=== PATIENT | female | born 1950 | race Caucasian/White ===

== ENCOUNTER 2017-01-24 11:03 | Observation (INO) | payer MEDICARE, OTHER ==
[2017-01-24 12:01] LABS: Lactic Acid 1.2 (0.4-2.0); VBG BASE EXCESS 0.7 (-2.0-2.0); VBG CARBOXYHEMOGLOBIN 3.2 % T HGB (0.0-6.9); VBG HCO3- 25.4 meq/L (22-28); VBG HEMOGLOBIN 8.5; VBG O2 SATURATION 92.6 (95-100); VBG POTASSIUM 4.6 (3.5-5.1); VBG pH 7.41 (7.32-7.42)
[2017-01-24 12:01] LABS: COMPLETE URINE MICROSCOPIC? NO; Collection Type CLEAN CATCH
[2017-01-24 12:04] LABS: Mean Cell Volume 94.8 fl (78-100); Mean Corpuscular Hemoglobin 28.7 pg (26-32); Mean Platelet Volume 10.8 fl (6-9.5); Platelet Count 231 K/mm3 (150-450); Red Blood Count 2.89 M/mm3 (4.1-5.4); Red Cell Distribution Width 13.6 % (11.5-14.0); White Blood Count 12.3 K/mm3 (4.0-10.5)
--- NOTE | 2017-01-24 12:15 | ERPHSYRPT ---
- History of Present Illness Time Seen by Provider: 01/24/17 11:31 Source: patient, family (friend) Patient Subjective Stated Complaint: pt states she has been sob for the past few months and has become worse over the last few weeks . pt states she couldn' t wait to see her DrJonathan tomorrow. pt states she has a history of Chf. denies any cough. c/o bilateral leg edema. sob worse with exertion. Triage Nursing Assessment: pt pink, warm, dry. bilateral 2 plus pitting edema. lung sounds clear and equal. Physician History: CC: 66 y/o patient of FLYNN Templeton. She came to ER with gradually increasing BELTRAN and shortness of breath. Some fatigue. No chest pain. Some edema and swelling. No blood in stools. Normal urination. No fever or chills. This has worsened over a few months. She does not go to doctor often. She has some hx of heart disease and saw Dr Powers in the past. No hx of kidney disease. Severity of Dyspnea-Max: severe Severity of Dyspnea-Current: moderate Allergies/Adverse Reactions: No Known Drug Allergies Allergy (Unverified 01/24/17 11:42) Home Medications: Lisinopril 40 mg PO DAILY 04/09/15 [History] Ranitidine HCl [Zantac] 300 mg PO DAILY 04/09/15 [History] Atorvastatin Calcium [Lipitor 20MG Tablet] 20 mg PO DAILY 01/24/17 [History] Cholestyramine/Aspartame [Prevalite Powder] 231 gm PO DAILY 01/24/17 [History] Cyanocobalamin 1000 Mcg/ml [Cyanocobalamin B-12 1000 MCG/ML] 1,000 mcg IJ UD 01/24/17 [History] Diltiazem HCl [Cartia Xt] 240 mg PO DAILY 01/24/17 [History] Fluticasone/Vilanterol [Breo Ellipta 100-25 Mcg INH] 1 each IH DAILY 01/24/17 [ History] Insulin Glargine,Hum.rec.anlog [Lantus Solostar] 74 unit SQ HS 01/24/17 [History ] Meloxicam 15 mg [Meloxicam 15 MG] 15 mg PO DAILY 01/24/17 [History] Hx Tetanus, Diphtheria Vaccination/Date Given: Yes (unknown) Hx Influenza Vaccination/Date Given: Yes Hx Pneumococcal Vaccination/Date Given: Yes Immunizations Up to Date: Yes - Review of Systems Constitutional: Fatigue, Malaise, Weakness, No Fever, No Chills Eyes: No Symptoms Ears, Nose, & Throat: No Symptoms Respiratory: Dyspnea, Dyspnea on Exertion (BELTRAN), No Cough Cardiac: No Chest Pain Abdominal/Gastrointestinal: No Abdominal Pain, No Nausea, No Vomiting, No Diarrhea Genitourinary Symptoms: No Dysuria Musculoskeletal: No Back Pain Skin: No Rash Neurological: No Headache All Other Systems: Reviewed and Negative - Past Medical History Pertinent Past Medical History: Yes Neurological History: No Pertinent History ENT History: Cataracts Cardiac History: Congestive Heart Failure, Hypertension Respiratory History: No Pertinent History Endocrine Medical History: Diabetes Type II Musculoskeletal History: Arthritis GI Medical History: No Pertinent History History: No Pertinent History Psycho-Social History: No Pertinent History Female Reproductive Disorders: No Pertinent History Other Medical History: anemia and colonic AVM - Past Surgical History Past Surgical History: No Neuro Surgical History: No Pertinent History Cardiac: No Pertinent History Respiratory: No Pertinent History Gastrointestinal: No Pertinent History Genitourinary: No Pertinent History Musculoskeletal: No Pertinent History Female Surgical History: No Pertinent History Other Surgical History: cataracts - Social History Smoking Status: Never smoker Exposure to second hand smoke: No Drug Use: none Patient Lives Alone: No - Nursing Vital Signs Nursing Vital Signs: Initial Vital Signs Temperature 97.4 F Temperature Source Oral Pulse Rate 100 Respiratory Rate 18 Blood Pressure [Right Arm] 154/52 Pain Intensity 0 - Physical Exam General Appearance: alert Eye Exam: PERRL/EOMI Neck Exam: normal inspection, non-tender, supple Respiratory Exam: normal breath sounds, lungs clear, No respiratory distress Cardiovascular/Chest Exam: regular rate/rhythm, murmur (soft) Abdominal/Gastrointestinal Exam: soft, No tenderness, No distention, No mass, No guarding Extremity Exam: non-tender, normal range of motion Neurologic Exam: alert, oriented x 3, cooperative, sensation nml, No motor deficits Skin Exam: warm, dry, No rash SpO2 Interpretation: normal SpO2: 96 Oxygen Delivery: Room Air - Course Nursing assessment & vital signs reviewed: Yes EKG Interpreted by Me: RATE (100), Sinus Rhythm, NORMAL AXIS, LAFB, NORMAL INTERVALS (QTc 439), NORMAL QRS, Non-specific ST Changes - Radiology Exams cxr X-ray Interpretation: Teleradiologist Report, Negative Ordered Tests: Active Orders 24 hr Category Date Time Status Elevator Constructor STAT Care 01/24/17 11:42 Active Clean Catch Urine Specimen STAT Care 01/24/17 12:06 Active EKG-ER Only STAT Care 01/24/17 11:42 Active IV Insertion STAT Care 01/24/17 11:42 Active Pulse Oximetry (ED) STAT Care 01/24/17 11:42 Active CHEST 1 VIEW (PORTABLE) Stat Exams 01/24/17 11:48 Completed CBC W DIFF Stat Lab 01/24/17 11:56 Completed CMP Stat Lab 01/24/17 11:56 Completed Lactic Acid Urgent Lab 01/24/17 11:48 Completed Manual Differential NC Stat Lab 01/24/17 11:56 Completed NT PRO BNP Stat Lab 01/24/17 11:56 Completed Occult Blood,Stool Other Stat Lab 01/24/17 12:20 Completed TROPONIN Stat Lab 01/24/17 11:56 Completed UA Stat Lab 01/24/17 11:56 Completed VENOUS BLOOD GAS Urgent Lab 01/24/17 11:48 Completed Lab/Rad Data: Laboratory Result Diagrams 01/24/17 11:56 01/24/17 11:56 Laboratory Results 01/24/17 01/24/17 01/24/17 Range/Units 12:20 11:56 11:56 WBC 12.3 H (4.0-10.5) K/mm3 RBC 2.89 L (4.1-5.4) M/mm3 Hgb 8.3 L (12.0-16.0) gm/dl Hct 27.4 L (35-47) % MCV 94.8 (78-100) fl MCH 28.7 (26-32) pg MCHC 30.3 L (32-36) g/dl RDW 13.6 (11.5-14.0) % Plt Count 231 (150-450) K/mm3 MPV 10.8 H (6-9.5) fl VBG pH (7.32-7.42) VBG pCO2 at Pat Temp (42-55) mm/Hg VBG pO2 at Pat Temp (25-40) mm/Hg VBG HCO3 (22-28) meq/L VBG O2 Sat (Victor Manuel) (95-100) VBG Base Excess (-2.0-2.0) VBG Hemoglobin VBG Carboxyhemoglobin (0.0-6.9) % T HGB POC Potassium (3.5-5.1) Sodium 140 (136-145) mEq/L Potassium 4.6 (3.5-5.1) mEq/L Chloride 104 (98-107) mEq/L Carbon Dioxide 23.3 (21-32) mEq/L Anion Gap 16.8 H (5-15) MEQ/L BUN 33 H (9-20) mg/dL Creatinine 1.48 H (0.55-1.30) mg/dl Estimated GFR 38 ML/MIN Glucose 158 H (70-110) MG/DL Lactic Acid (0.4-2.0) Calcium 9.1 (8.5-10.1) mg/dL Total Bilirubin 0.2 (0.2-1.0) mg/dL AST 18 (15-37) U/L ALT 13 (12-78) U/L Alkaline Phosphatase 120 H (46-116) U/L Troponin I < 0.017 (0.000-0.056) ng/ml NT-Pro-B Natriuret Pep 139 H (0-125) pg/ml Serum Total Protein 6.8 (6.4-8.2) gm/dL Albumin 3.0 L (3.4-5.0) g/dL Ur Collection Type Urine Color (YELLOW) Urine Appearance (CLEAR) Urine pH (5-6) Ur Specific [place] (1.005-1.025) Urine Protein (Negative) Urine Glucose (UA) (NEGATIVE) mg/dL Urine Ketones (NEGATIVE) Urine Nitrite (NEGATIVE) Urine Bilirubin (NEGATIVE) Urine Urobilinogen (0-1) mg/dL Urine WBC (Auto) (NEGATIVE) Urine RBC (Auto) (0-5) Akash/ul Stool Occult Blood POSITIVE (Negative) Specimen Received 01/24/17 01/24/17 Range/Units 11:56 11:48 WBC (4.0-10.5) K/mm3 RBC (4.1-5.4) M/mm3 Hgb (12.0-16.0) gm/dl Hct (35-47) % MCV (78-100) fl MCH (26-32) pg MCHC (32-36) g/dl RDW (11.5-14.0) % Plt Count (150-450) K/mm3 MPV (6-9.5) fl VBG pH 7.41 (7.32-7.42) VBG pCO2 at Pat Temp 40 L (42-55) mm/Hg VBG pO2 at Pat Temp 59 H (25-40) mm/Hg VBG HCO3 25.4 (22-28) meq/L VBG O2 Sat (Victor Manuel) 92.6 L (95-100) VBG Base Excess 0.7 (-2.0-2.0) VBG Hemoglobin 8.5 VBG Carboxyhemoglobin 3.2 (0.0-6.9) % T HGB POC Potassium 4.6 (3.5-5.1) Sodium (136-145) mEq/L Potassium (3.5-5.1) mEq/L Chloride (98-107) mEq/L Carbon Dioxide (21-32) mEq/L Anion Gap (5-15) MEQ/L BUN (9-20) mg/dL Creatinine (0.55-1.30) mg/dl Estimated GFR ML/MIN Glucose (70-110) MG/DL Lactic Acid 1.2 (0.4-2.0) Calcium (8.5-10.1) mg/dL Total Bilirubin (0.2-1.0) mg/dL AST (15-37) U/L ALT (12-78) U/L Alkaline Phosphatase (46-116) U/L Troponin I (0.000-0.056) ng/ml NT-Pro-B Natriuret Pep (0-125) pg/ml Serum Total Protein (6.4-8.2) gm/dL Albumin (3.4-5.0) g/dL Ur Collection Type CLEAN CATCH Urine Color YELLOW (YELLOW) Urine Appearance CLEAR (CLEAR) Urine pH 5.0 (5-6) Ur Specific [place] 1.010 (1.005-1.025) Urine Protein NEGATIVE (Negative) Urine Glucose (UA) NEGATIVE (NEGATIVE) mg/dL Urine Ketones NEGATIVE (NEGATIVE) Urine Nitrite NEGATIVE (NEGATIVE) Urine Bilirubin NEGATIVE (NEGATIVE) Urine Urobilinogen 0.2 (0-1) mg/dL Urine WBC (Auto) NEGATIVE (NEGATIVE) Urine RBC (Auto) NEGATIVE (0-5) Akash/ul Stool Occult Blood (Negative) Specimen Received 5/9/17 1150 - Progress Progress Note: 01/24/17 13:39 She is stable. No chest pain. Somewhat breathless with exertion. VTE not suspected. She has anemia. Heme positive stools. No sign of CHF. She and family feel needs observation. Called Dr Oliveros and will get repeat H/H, echo. Discussed with .: Domo Will see patient in: hospital (observation) Counseled pt/family regarding: lab results, diagnosis, need for follow-up, rad results - Departure Time of Disposition: 13:40 Departure Disposition: Observation Clinical Impression: Dyspnea on exertion, Anemia, Heme positive stool Condition: Fair Critical Care Time: No
--- NOTE | 2017-01-24 12:28 | XRAY ---
Indication: Short of breath. Comparison: June 24, 2015. Portable chest remains clear. Heart is not enlarged for AP portable technique. Bony thorax intact again with mild degenerative changes. Impression: Stable nonacute chest.
[2017-01-24 12:35] LABS: ALKALINE PHOSPHATASE 120 U/L (46-116); ANION GAP 16.8 MEQ/L (5-15); BILIRUBIN,TOTAL 0.2 mg/dL (0.2-1.0); BLOOD UREA NITROGEN 33 mg/dL (9-20); CHLORIDE 104 mEq/L (98-107); Carbon Dioxide 23.3 mEq/L (21-32); Glucose 158 MG/DL (70-110); Potassium 4.6 mEq/L (3.5-5.1); SGOT/AST 18 U/L (15-37); SGPT/ALT 13 U/L (12-78); SODIUM 140 mEq/L (136-145); Total Protein 6.8 gm/dL (6.4-8.2)
[2017-01-24 12:41] LABS: TROPONIN < 0.017 ng/ml (0.000-0.056)
[2017-01-24 14:04] LABS: Eosinophil 5 % (0.00-3.0); Nucleated Red Blood Cell 1 %; Total Cells Counted 100
[2017-01-24 14:05] LABS: ANISOCYTOSIS 1+; Macrocytosis 1+; Platelet Estimate NORMAL (NORMAL); Polychromasia 1+
[2017-01-24] MEDS ORDERED: TYLENOL 325 MG PO PRN (14:27)
[2017-01-24] MEDS ORDERED: NovoLOG Insulin SQ PRN (14:27)
[2017-01-24] MEDS: PROTONIX 40 MG IV IV SCH (15:13)
[2017-01-24 16:30] LABS: Mean Cell Volume 94.9 fl (78-100); Platelet Count 210 K/mm3 (150-450); Red Blood Count 2.77 M/mm3 (4.1-5.4); Red Cell Distribution Width 13.6 % (11.5-14.0); White Blood Count 11.8 K/mm3 (4.0-10.5)
[2017-01-24 16:42] LABS: Mean Corpuscular Hemoglobin 28.1 pg (26-32)
[2017-01-24] MEDS ORDERED: Ventolin Hfa MDI IH PRN (17:34)
[2017-01-24] MEDS ORDERED: PROVENTIL COMMON CANISTER IH PRN (17:41)
[2017-01-24] MEDS ORDERED: MEDICATION INTERVENTION MC PRN (17:42)
[2017-01-24] MEDS ORDERED: Cyanocobalamin B-12 1000 MCG/ML IJ PRN (17:45)
[2017-01-24 18:48] LABS: BAND 4 % (0.0-2.0); Eosinophil 3 % (0.00-3.0); Platelet Estimate NORMAL (NORMAL); Total Cells Counted 100
[2017-01-24 18:49] LABS: Hypochromia 2+; Poikilocytosis 1+; Tear Drop Cells 1+
[2017-01-24 18:50] LABS: Polychromasia 1+
[2017-01-24] MEDS ORDERED: Sodium Chloride 0.9% 500 ML 500 ML IV SCH (20:45)
[2017-01-24] MEDS: Apresoline 25 MG TABLET PO SCH (21:58)
[2017-01-24] MEDS: FEOSOL 325 MG PO SCH (21:58)
[2017-01-24] MEDS ORDERED: Lantus Insulin SQ SCH (22:00)
[2017-01-24] MEDS ORDERED: INSULIN GLARGINE HUM REC ANLOG SQ SCH (22:00)
[2017-01-25 00:23] VITALS: O2SAT 96
[2017-01-25 07:05] LABS: Mean Cell Volume 92.3 fl (78-100); Mean Corpuscular Hemoglobin 28.5 pg (26-32); Mean Platelet Volume 10.4 fl (6-9.5); Platelet Count 198 K/mm3 (150-450); Red Blood Count 3.26 M/mm3 (4.1-5.4); Red Cell Distribution Width 15.4 % (11.5-14.0); White Blood Count 8.9 K/mm3 (4.0-10.5)
[2017-01-25 07:16] VITALS: BP 144/64; PULSE 82
--- NOTE | 2017-01-25 07:42 | PCM.DCORD ---
- Discharge Discharge Date: 01/25/17 Disposition: Home, Self-Care Condition: Fair Prescriptions: Continue Ranitidine HCl [Zantac] 300 mg PO DAILY Lisinopril 40 mg PO DAILY HydrALAzine HCL 25 MG TAB [Apresoline 25 MG TABLET] 25 mg PO TID #0 tablet Insulin Glargine,Hum.rec.anlog [Lantus Solostar] 74 unit SQ HS Fluticasone/Vilanterol [Breo Ellipta 100-25 Mcg INH] 1 each IH DAILY Cyanocobalamin 1000 Mcg/ml [Cyanocobalamin B-12 1000 MCG/ML] 1,000 mcg IJ UD Atorvastatin Calcium [Lipitor 20MG Tablet] 20 mg PO DAILY Cholestyramine/Aspartame [Prevalite Powder] 1 scoop PO DAILY Phentermine HCl [Adipex-P] 37.5 mg PO DAILY Furosemide 40 mg [Lasix 40 MG] 20 mg PO DAILY Albuterol Sulfate [Proventil Hfa] 1 puff IH DAILY PRN PRN PRN Reason: WHEEZING Ferrous Sulfate 325 mg [Feosol 325 mg] 325 mg PO BID Diltiazem HCl 300 mg [Cardizem CD 300 MG] 300 mg PO DAILY Discontinued Meloxicam 15 mg [Meloxicam 15 MG] 15 mg PO DAILY Follow up with: NIKKI ESPINAL [ACTIVE STAFF] - ENRIQUE TOBIN [ACTIVE STAFF] - Call for Appointment (2 weeks )
[2017-01-25 08:12] LABS: Eosinophil 3 % (0.00-3.0); Total Cells Counted 100
[2017-01-25 08:13] LABS: Platelet Estimate NORMAL (NORMAL)
--- NOTE | 2017-01-25 08:20 | ECHO ---
Transthoracic echocardiographic examination and color Doppler was done on 01/24/2017. INDICATION: Shortness of breath. IMPRESSION: 1) NO REGIONAL WALL MOTION ABNORMALITY. ESTIMATED GLOBAL LEFT VENTRICULAR EJECTION FRACTION BETWEEN 60 AND 70%. 2) LEFT VENTRICULAR HYPERTROPHY. 3) AORTIC VALVE SCLEROSIS. PEAK TRANSAORTIC GRADIENT 14 MM OF MERCURY; The left ventricle is visualized and demonstrated adequate motion of all the segments. Estimated global left ventricular ejection fraction around 60 to 70%. There is mild left ventricular hypertrophy. Mitral valve was partially seen and this appears to open adequately. No significant mitral regurgitation is seen. The aortic valve appears to open adequately. It is mildly sclerotic. The peak gradient across the aortic valve is about 14. Right sided chambers are mildly dilated.
[2017-01-25] MEDS: FEOSOL 325 MG PO SCH (08:38)
[2017-01-25] MEDS: Apresoline 25 MG TABLET PO SCH (08:38)
[2017-01-25] MEDS: PROTONIX 40 MG IV IV SCH (08:39)
[2017-01-25 09:45] LABS: ANION GAP 10.1 MEQ/L (5-15); Carbon Dioxide 30.5 mEq/L (21-32); Potassium 4.8 mEq/L (3.5-5.1)
[2017-01-25] MEDS ORDERED: LASIX 20 MG PO SCH (10:00)
[2017-01-25] MEDS ORDERED: Zestril 20 MG PO SCH (10:00)
[2017-01-25] MEDS ORDERED: [UNRECOGNIZED DRUG - OTHER] PO SCH (10:00)
[2017-01-25] MEDS ORDERED: CHOLESTYRAMINE PO SCH (10:00)
[2017-01-25] MEDS ORDERED: QUESTRAN Light 4 GM Packet PO SCH (10:00)
[2017-01-25] MEDS ORDERED: NON-FORMULARY ITEM (Fluticasone/Vilanterol [Breo Ellipta 100-25 Mcg Inh] 1 EACH) IH SCH (10:00)
[2017-01-25] MEDS ORDERED: Zocor 10MG PO SCH (10:00)
[2017-01-25] MEDS ORDERED: Cardizem CD 300 MG PO SCH (10:00)
[2017-01-25] MEDS ORDERED: Pepcid 20 MG PO SCH (10:00)
[2017-01-25] MEDS ORDERED: NON-FORMULARY ITEM (Atorvastatin Calcium 20 MG) PO SCH (10:00)
--- NOTE | 2017-01-25 14:52 | DS ---
DISCHARGE DIAGNOSIS: 1. GASTROINTESTINAL BLEED. 2. BLOOD LOSS ANEMIA. 3. ARTHRITIS. BRIEF HISTORY: The patient is a 66 y/o WF who presented to the Emergency Room due to complaints of shortness of breath and dyspnea on exertion. The patient was evaluated in the Emergency Room and found to be anemic. She was also found to have heme-positive stools. She was brought in to the hospital for evaluation. Serial Hgb/Hct shows the patient did drop her Hgb to less than 8. She was thusly transfused 2 units of PRBC after which her Hgb arose to 9.3. The patient's symptoms resolved with regards to shortness of breath after the transfusion. The patient is now felt to be ready for discharge home again with plans to have outpatient evaluation with endoscopy. The patient has been found to have been taking meloxicam regularly for arthritis. She has been instructed to hold this medication and placed on oral proton pump inhibitors and she is also currently taking iron as she does have a history of the anemia. The patient has never had endoscopic evaluation previously and she is asked to follow-up with us in the office in 2 weeks. We will arrange for an outpatient endoscopy at that time. She has been instructed to hold the meloxicam and continue to take the proton pump inhibitor medications as well as her iron. She will call if she has any further problems in the interim.
== END 2017-01-25 09:50 | disposition home or self-care (01) ==
LOC: ED 11:03 → MED SURG 14:04
PROVIDERS: ADMIT Family Medicine; ATTEND Family Medicine
DX: K92.2 Gastrointestinal hemorrhage, unspecified (principal); D50.0 Iron deficiency anemia secondary to blood loss (chronic); M19.90 Unspecified osteoarthritis, unspecified site; I10 Essential (primary) hypertension; Z79.899 Other long term (current) drug therapy
CPT/HCPCS: 82962; 93268; 93041; 99285; 36000; 93005; 81002; 36415 ×2; 82272; 83880; 85025 ×2; 80048; 80053; 84484; 86850; 86900; 86901; 86922; 93306; 71010; 82805; 94760; 83605; P9016; 36430; G0378; A9270-GY

== ENCOUNTER 2017-02-14 05:53 | Day surgery (SDC) | payer MEDICARE, OTHER ==
[2017-02-14] MEDS ORDERED: Lactated Ringers 1,000 ML IV ONE (06:03)
[2017-02-14] MEDS ORDERED: Lactated Ringers 1,000 ML IV SCH (06:30)
[2017-02-14] MEDS ORDERED: Versed 2 MG/2 ML Injection IV ONE (08:00)
[2017-02-14] MEDS ORDERED: DIPRIVAN 200 MG/20 ML IV ONE (08:00)
[2017-02-14 09:37] VITALS: BP 142/86; PULSE 64; O2SAT 97
--- NOTE | 2017-02-14 10:31 | OP ---
SURGERY DATE: 02/14/17 SURGERY TIME: 724 PREOPERATIVE DIAGNOSIS: 1. ANEMIA. POSTOPERATIVE DIAGNOSIS: 1. MILD GASTRITIS. 2. HIATAL HERNIA. 3. 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 PROCEDURE: 1. Esophagogastroduodenoscopy. 2. Colonoscopy. SURGEON: Dr. Oliveros. ANESTHESIA: MAC. Medications given by the Anesthesia Department. BRIEF HISTORY: The patient is a 66 y/o WF presenting now with history of anemia. The patient reports not taking any nonsteroidal anti-inflammatory medications. She has not noticed any blood in her stool. She was felt to need to have endoscopic evaluation due to the presence of the unexplained anemia. The patient was appraised of the risks of the procedure including the risk of perforation, phlebitis, untoward reaction to medication, bleeding, and missed lesions. The patient verbalized her understanding and desired to have the procedure performed. DESCRIPTION OF PROCEDURE: The patient was given the medications by the Anesthesia Department. She had continuous pulse oximetry, ECG monitoring, intermittent BP monitoring, and end tidal CO2 monitoring during the examination. She was placed in the left lateral decubitus position. A bite block was placed and the flexible Olympus gastroscope was used to intubate the oropharynx. The scope was easily introduced in the esophagus which appeared to be normal to the esophagogastric junction where there appeared to be a hiatal hernia present. The scope was passed along into the stomach. The gastric boston was suctioned dry and the stomach was insufflated revealing normal gastric rugal folds which distended nicely with the insufflation of air. The scope was passed along the greater curvature of the stomach to the antrum. The pylorus was encountered and intubated and the duodenum was inspected and found to be normal. The scope was withdrawn towards the stomach. Again, a retroflex view was obtained of the lesser curvature, fundus, and cardia regions of the stomach and was noted the hiatal hernia as well in this position. No other mucosal lesions being encountered, the scope was removed from the patient who tolerated the procedure well. Next, a digital rectal examination was performed and revealed normal anal sphincter tone and no masses. The flexible Olympus pediatric colonoscope was used to intubate the rectum. A view of the colon was developed sequentially to the cecum. Upon insertion and withdrawal, were noted multiple small areas of arteriovenous malformations in the right colon. No other mucosal lesions being encountered, the scope was removed from the patient who tolerated the procedure well and was sent back to OP recovery in good condition. The prep was noted to be fair to good.
== END 2017-02-14 09:30 | disposition home or self-care (01) ==
LOC: SDC 05:53
PROVIDERS: ATTEND Family Medicine
PROC: 0DJ08ZZ Inspection of Upper Intestinal Tract, Via Natural or Artificial Opening Endoscopic (ICD-10-PCS; principal; 2017-02-14)
PROC: 0DJD8ZZ Inspection of Lower Intestinal Tract, Via Natural or Artificial Opening Endoscopic (ICD-10-PCS; 2017-02-14)
DX: K29.70 Gastritis, unspecified, without bleeding (principal); K44.9 Diaphragmatic hernia without obstruction or gangrene; Q27.33 Arteriovenous malformation of digestive system vessel; I10 Essential (primary) hypertension; E11.9 Type 2 diabetes mellitus without complications
CPT/HCPCS: 00740; 00810; J2250; J2704

== ENCOUNTER 2020-11-09 11:21 | Day surgery (SDC) | payer MEDICARE, OTHER ==
--- NOTE | 2020-11-09 10:01 | HP ---
DATE OF SURGERY: 11/09/2020 HISTORY OF PRESENT ILLNESS: The patient is a 70 year-old with no prior history, episodes of nausea, epigastric pain sharp radiating to right upper quadrant, increased loose stools worse with greasy foods. PAST MEDICAL HISTORY: Hypertension. Diabetes mellitus type II. Hyperlipidemia. PAST SURGICAL HISTORY: Colonoscopy years ago that was normal. MEDICATIONS: Adipex, cyanocobalamin, omeprazole, rosuvastatin, multivitamin, Lantus, hydralazine, diltiazem, furosemide. ALLERGIES: NKDA. FAMILY HISTORY: Negative in regards to this problem. Mother with pacemaker. Father with coronary artery disease. SOCIAL HISTORY: Denies smoking, no alcohol use. REVIEW OF SYSTEMS: Fourteen systems negative or noncontributory as above and per preadmission questionnaire. No chest pain or palpitations. LAB DATA AND TESTS: She had ultrasound showed cholelithiasis with 1.9 cm stone near the neck of the gallbladder. PHYSICAL EXAMINATION: GENERAL: No acute distress. HEENT: Sclerae nonicteric. NECK: No JVD. CHEST: Equal excursion, nonlabored breathing. CVS: Regular rate and rhythm. ABDOMEN: Soft, some mild tenderness epigastrium. No peritoneal signs. EXTREMITIES: No significant edema. NEURO: Alert, oriented, moving extremities symmetrically. No gross motor deficits noted. PSYCH: Appropriate mood and affect. IMPRESSION: Acute exacerbation of chronic cholecystitis, cholelithiasis. I feel the patient will benefit from cholecystectomy. She was shown the gallbladder risk sheet, explained the procedure in detail including but not limited to bleeding or infection, risk of trocar injury or hernia, risk of bowel, bladder or blood vessel injury, risk of bile leak, bile duct injury, retained stone or sludge possibly requiring further procedure either open or ERCP, general risk of anesthesia, deep venous thrombosis, pulmonary embolism, pneumonia, perioperative risk of aches, pains, bloating, constipation and/or loose stools possibly even chronic in nature, including the possibility the procedure may not improve her symptoms, possibly requiring other studies or procedures, endoscopy, but not limited to. She understands and agrees to the planned procedure, will proceed with outpatient laparoscopic cholecystectomy with possible open as an outpatient.
[~2020-11-09 11:21] MED LIST: DIPRIVAN 200 MG/20 ML IV ONE; Lactated Ringers 1,000 ML IV ONE; SUBLIMAZE 250 MCG/5 ML ONE; Sensorcaine 0.25% 10 ML ONE; Versed 2 MG/2 ML Injection ONE; Zemuron 100 MG/10 ML ONE
[2020-11-09] MEDS ORDERED: MEFOXIN 2 GM PREMIX** 2 GM/50 ML ML IV SCH (12:00)
[2020-11-09] MEDS ORDERED: Lactated Ringers 1,000 ML IV SCH (12:00)
[2020-11-09 12:34] LABS: Calcium 9.4 mg/dL (8.4-10.2); Creatinine 1 2.01 mg/dL (0.52-1.04); EST GLOMERULAR FILTRATION RATE 26.1 ML/MIN
[2020-11-09] MEDS ORDERED: Sodium Chloride 0.9% 1000 ML 1,000 ML ONE (13:15)
[2020-11-09] MEDS ORDERED: BRIDION 200MG/2ML IV ONE (13:36)
[2020-11-09] MEDS ORDERED: SUBLIMAZE 100 MCG/2 ML ONE (13:59)
[2020-11-09] MEDS ORDERED: Zofran 4 MG/2 ML VIAL ONE ×2 (14:19→15:23)
--- NOTE | 2020-11-09 15:00 | OP ---
SURGERY DATE/TIME: 11/09/2020 1252 PREOPERATIVE DIAGNOSIS: Acute exacerbation of chronic cholecystitis, symptomatic cholelithiasis. POSTOPERATIVE DIAGNOSIS: Acute exacerbation of chronic cholecystitis, symptomatic cholelithiasis. PROCEDURE: Laparoscopic cholecystectomy. SURGEON: Dr. Esteban Julian. ANESTHESIA: General. ESTIMATED BLOOD LOSS: Minimal. INDICATIONS: As noted above. Risks and benefits explained in detail but not limited to and consent obtained. DESCRIPTION OF PROCEDURE AND FINDINGS: The patient was taken to the operating room. General anesthesia induced. Abdomen prepped and draped in the usual sterile fashion. After official time out and no disagreement with planned procedure, a transverse incision made at the supraumbilical area. Fascia grasped and pulled upward. Veress needle inserted and tested with saline. Pneumoperitoneum accomplished insufflating opening pressure of 0-15. A 5 mm bladeless port and camera inserted without difficulty followed by two - 5 mm right upper quadrant ports and 11 mm epigastric port. There is no evidence of any intra-abdominal injury secondary to trocar insertion. She had quite a bit of obesity. The gallbladder had some mild chronic inflammatory reaction. It was grasped and retracted up over the edge of the fatty, infiltrated liver dissecting posterior, lateral to anterior fashion. Slowly and carefully cystic duct and infundibular junction slowly and carefully well skeletonized until the critical view obtained both anteriorly and posteriorly. Once this was accomplished even with her obesity the common duct actually was well visualized. The cystic artery was able to be clipped x3 and divided in the usual fashion. Gallbladder slowly and carefully dissected free from its dense attachment to liver bed staying directly on the gallbladder wall clipping additional oozing side branches off the oozing cystic artery or cystic vein branch directly on the gallbladder wall. Just prior to releasing from final attachments to the anterior edge of the liver, the liver bed re-inspected. Clips noted to be in place cystic duct and cystic artery stumps. No signs of any active bleeding or bile leakage. It was felt there was no benefit in drain placement. At this point the gallbladder released from its final attachments to the liver bed, placed in the provided sac by the hospital and pulled up into epigastric wound. It was necessary to enlarge the wound slightly with a clamp to allow the bag and the gallbladder and moderately large stone to be pulled free and passed off without contaminating the port wound. Copious amount of irrigation accomplished lateral to the liver and subhepatic space irrigating until clear. Liver bed re-inspected. Clips noted in place cystic duct and cystic artery stumps. No signs of any active bleeding or bile leakage. It was felt there was no benefit from drain placement. At this point the fascial defect 06/28 site closed with puncture closure device with #1 Vicryl under direct vision of the camera. Pneumoperitoneum decompressed. The wound irrigated out. Skin incision closed with 4-0 Vicryl. Steri-Strips and sterile dressing applied. 0.25% Marcaine local injected along the skin incision fascial defect. The patient tolerated the procedure well. There were no immediate complications. Findings discussed with the family out in the waiting area.
[2020-11-09] MEDS ORDERED: Zofran 4 MG/2 ML VIAL IV PRN ×2 (15:25)
[2020-11-09 16:26] VITALS: BP 145/67; PULSE 67; O2SAT 95
== END 2020-11-09 16:15 | disposition home or self-care (01) ==
LOC: SDC 11:21
PROVIDERS: ATTEND Surgery
DX: K80.10 Calculus of gallbladder with chronic cholecystitis without obstruction (principal); E11.9 Type 2 diabetes mellitus without complications; E78.5 Hyperlipidemia, unspecified; I10 Essential (primary) hypertension; Z79.899 Other long term (current) drug therapy
CPT/HCPCS: 36415; 80048; J0694; J2250; J2405; J2704; J3010